=== PATIENT | female | born 1990 | race Caucasian/White ===

== ENCOUNTER → 2021-10-11 | Outpatient (CLI) | payer OTHER ==
--- NOTE | 2021-10-12 08:36 | RAD ---
US PELVIS COMPLETE History: Reason: PELVIC PAIN / Spl. Instructions: / History: Comparison: None Technique: Grayscale and color Doppler imaging of the pelvis was performed using transabdominal techn ique. Findings: The uterus measures 8.9 x 5.9 x 4.4 cm. Heterogeneous anterior uterine mass submucosal measures 1.8 x 1.4 x 1.4 cm abutting the endometrium. The endometrial stripe measures 1.5 mm. Right ovary measures 4.0 x 1.1 x 2.7 cm. Involuting right ovarian follicle measures 1.6 cm. Left ovary measures 3.0 x 2.1 x 2.0 cm. Normal Doppler flow to the ovaries. No adnexal masses are seen. Minimal pelvic free fluid, likely phy siologic. IMPRESSION: 1. Small anterior uterine mass abutting the endometrium, may represent submucosal fibroid. Electronically signed by: Brannon Murphy DO (10/12/2021 8:33 AM) [id number]
== END ==
LOC: US 14:23
PROVIDERS: ATTEND Family Medicine
DX: N85.8 Other specified noninflammatory disorders of uterus (principal); N94.10 Unspecified dyspareunia
CPT/HCPCS: 76856